=== PATIENT | female | born 1965 | race African-American/Black ===

== ENCOUNTER 2024-02-11 18:37 | Emergency (ER) | payer BC, OTHER ==
[~2024-02-11] VITALS: Ht 170.2 cm; Wt 90.0 kg
[2024-02-11 18:47] VITALS: TEMP 98.6; O2SAT 66
[2024-02-11] MEDS ORDERED: CYCL10TA21 MT (23:10)
[2024-02-11] MEDS: KETOROLAC 60MG/2ML VIAL IM ONE (23:12)
[2024-02-11] MEDS: CYCLOBENZAPRINE 10MG TABLET PO ONE (23:38)
[2024-02-11 23:47] VITALS: BP 164/54; PULSE 62; RESP 14
== END 2024-02-12 00:06 | disposition home or self-care (01) ==
LOC: ER 18:37
DX: M54.50 Low back pain, unspecified (principal); E11.9 Type 2 diabetes mellitus without complications; I10 Essential (primary) hypertension
CPT/HCPCS: 96372; 99283; J1885; Z7610 ×2